=== PATIENT | male | born 1965 | race Hispanic/Latino ===

== ENCOUNTER 2022-12-31 05:34 | Observation (INO) | payer OTHER ==
[~2022-12-31] VITALS: Ht 165.1 cm; Wt 93.0 kg
[~2022-12-31 05:34] MED LIST: ASPIRIN EC81 MG PO; CALCIUM500 MG PO; CLARITIN-D 241 EACH PO; EYE DROPS15 ML OU; VITAMIN D3 COM1 EACH PO
[2022-12-31] MEDS ORDERED: CELECOXIB 200 MG CAP ONE (06:27)
[2022-12-31] MEDS ORDERED: CEFAZOLIN SODIUM 2 GM ONE (06:28)
[2022-12-31] MEDS ORDERED: DEXAMETHASONE SOD PHOS 10 MG/1 ML VIAL ONE (06:28)
[2022-12-31] MEDS ORDERED: LACTATED RINGER'S 1,000 ML ONE (06:28)
[2022-12-31] MEDS ORDERED: GABAPENTIN 300 MG CAP ONE (06:28)
[2022-12-31] MEDS ORDERED: BUPIVACAINE 0.25% 30ML SDV ONE (06:35)
[2022-12-31] MEDS ORDERED: EPINEPHRINE 1 MG/ML 30ML VIAL ONE (06:35)
[2022-12-31] MEDS ORDERED: SODIUM CHLORIDE 0.9% 500ML 500 ML ONE (06:51)
[2022-12-31] MEDS ORDERED: TRANEXAMIC ACID 20 ML ONE (06:51)
[2022-12-31] MEDS ORDERED: Vancomycin IV 1,000 MG ONE (06:51)
[2022-12-31] MEDS ORDERED: ROPIVACAINE 246.25 MG, EPINEPHRINE HCL 1:1000 1ML 0.5 MG, CLONIDINE HCL 0.08 MG, KETORO... INJ ONE ×5 (07:00)
[2022-12-31] MEDS ORDERED: DIPHENHYDRAMINE HCL INJ 50 MG/ML VIAL IV PRN (08:45)
[2022-12-31] MEDS ORDERED: HYDROCODONE/APAP 5MG-325MG TAB PO PRN (08:45)
[2022-12-31] MEDS ORDERED: HYDROCODONE/APAP 7.5MG-325MG 1 EA TAB PO PRN (08:45)
[2022-12-31] MEDS ORDERED: ONDANSETRON HCL INJ 2MG/ML 2ML 2 MG/ML VIAL IV PRN (08:45)
[2022-12-31] MEDS ORDERED: DOCUSATE SODIUM 100 MG CAP PO PRN (08:45)
[2022-12-31] MEDS ORDERED: FENTANYL CITRATE/PF 100MCG/2 ML INJ IV ONE (09:32)
[2022-12-31] MEDS ORDERED: FENTANYL CITRATE/PF 100MCG/2 ML INJ ONE ×3 (09:43→13:53)
[2022-12-31] MEDS ORDERED: SODIUM CHLORIDE 0.9% 1000ML 1,000 ML IV SCH (11:45)
[2022-12-31 12:14] VITALS: BP 117/75
[2022-12-31 12:26] VITALS: BP 117/75
[2022-12-31] MEDS: ASPIRIN 325 MG TAB PO SCH ×2 (12:33→16:00)
[2022-12-31] MEDS ORDERED: SEVOFLURANE INHAL SOLN 250 ML PEN BTL ONE (12:44)
[2022-12-31] MEDS ORDERED: ONDANSETRON HCL INJ 2MG/ML 2ML 2 MG/ML VIAL ONE (12:44)
[2022-12-31] MEDS ORDERED: LIDOCAINE HCL 2% LOCAL INJ 5 ML SDV VIAL INJ ONE (12:44)
[2022-12-31] MEDS ORDERED: PROPOFOL IV EMULSION 10 MG/ML 20 ML VIAL ONE (12:44)
[2022-12-31] MEDS ORDERED: EPHEDRINE SULFATE INJ 50 MG/ML VIAL ONE (12:44)
[2022-12-31] MEDS ORDERED: DEXAMETHASONE SOD PHOS INJ 4 MG/ML SDV ONE (12:44)
[2022-12-31] MEDS ORDERED: POVIDONE IODINE 0.05% 0.05 % ML PO ONE (12:44)
[2022-12-31] MEDS ORDERED: MIDAZOLAM HCL 2 MG/2 ML VIAL ONE (13:34)
[2022-12-31 13:40] VITALS: BP 117/75
[2022-12-31] MEDS ORDERED: CELECOXIB 200 MG CAP PO SCH (17:00)
[2022-12-31 17:24] VITALS: BP 104/65
[2023-01-01] MEDS ORDERED: ACETAMINOPHEN 1000 MG/100 ML IV PRN (08:45)
== END 2022-12-31 18:59 | disposition home or self-care (01) ==
LOC: OR 05:34 → PACU V 08:43 → MED/SURG 11:22
PROVIDERS: ADMIT Specialist; ATTEND Specialist
DX: M17.0 Bilateral primary osteoarthritis of knee (principal); Z01.818 Encounter for other preprocedural examination; Z20.822 Contact with and (suspected) exposure to COVID-19
CPT/HCPCS: 0223U; 27447; 36415; 73560; 86850; 86900; 86920; 93005; 97110; 97116; 97161; 97530; C1713 ×3; C1776 ×3; G0378; J0171; J0690; J1100 ×2; J1885; J2001; J2250; J2405; J2704; J2795; J3010; J3370; J7040; J7121

== ENCOUNTER 2023-02-21 15:00 | Outpatient (RCR) | payer OTHER | END 2023-03-05 | LOC: PT 15:00 | PROVIDERS: ATTEND Physician Assistant | DX: Z47.1 Aftercare following joint replacement surgery (principal); Z96.652 Presence of left artificial knee joint ==

== ENCOUNTER 2023-03-07 08:42 | Outpatient (RCR) | payer OTHER | END 2023-04-04 | LOC: PT 08:42 | PROVIDERS: ATTEND Physician Assistant | DX: Z47.1 Aftercare following joint replacement surgery (principal); Z96.652 Presence of left artificial knee joint ==

== ENCOUNTER 2025-03-24 15:52 | Outpatient (RCR) | payer OTHER | END 2025-04-04 | LOC: PT 15:52 | PROVIDERS: ATTEND Orthopaedic Surgery Orthopaedic Surgery of the Spine | DX: M50.00 Cervical disc disorder with myelopathy, unspecified cervical region (principal); G95.89 Other specified diseases of spinal cord ==